=== PATIENT | male | born 1965 | race Caucasian/White ===

== ENCOUNTER 2019-03-11 06:09 | Emergency (ER) | payer BC ==
[2019-03-11] MEDS ORDERED: ONDANSETRON 4 MG/2 ML VIAL ONE (07:04)
[2019-03-11] MEDS ORDERED: MEPERIDINE HCL 50 MG/ML AMP ONE (07:04)
[2019-03-11 07:08] LABS: Absolute Lymphocytes (CBC) 0.5 K/uL (0.7-4.9); Absolute Neutrophil 13.7 K/uL (1.8-8.0); Basophils % 0.2 % (0-1.3); Eosinophils % 0.2 % (0-4.4); Hematocrit 42.1 % (39.6-49.0); Lymphocytes % 3.2 % (15.3-44.8); MPV 10.2 fL (7.6-11.3); Monocytes % 6.6 % (3.3-12.3); RBC Red Blood Cell Count 4.78 M/uL (4.33-5.43)
[2019-03-11 07:13] LABS: Potassium 4.6 mmol/L (3.5-5.1)
[2019-03-11] MEDS ORDERED: NA CHLORIDE 0.9% 2,000 ML ONE (07:42)
[2019-03-11] MEDS ORDERED: ACETAMINOPHEN 500 MG TAB ONE (07:42)
[2019-03-11] MEDS ORDERED: MEPERIDINE HCL 25 MG/0.5 ML ONE (07:54)
[2019-03-11] MEDS ORDERED: VANCOMYCIN/NS 1 gm 1 GM/250 ML BAG IV SCH (08:00)
[2019-03-11] MEDS ORDERED: HYDROMORPHONE HCL 0.5 MG/0.5 ML INJ ONE ×2 (08:09→08:50)
[2019-03-11] MEDS ORDERED: NA CHLORIDE 0.9% 1,000 ML ONE (08:22)
[2019-03-11] MEDS ORDERED: DIAZEPAM 10 MG/2 ML INJ SYRINGE ONE (09:32)
--- NOTE | 2019-03-11 09:49 | RAD REPORT ---
EXAM DESCRIPTION: CT - Spine Lumbar W/Cont - 03/11/2019 8:22 am CLINICAL HISTORY: Lumbar surgery, postsurgical bleeding, back pain COMPARISON: None. TECHNIQUE: Following nonionic IV contrast, axial 2 millimeter thick images of the lumbar spine were obtained. Sagittal and coronal reformatted images were generated and reviewed. The CT scan was performed using dose optimization techniques as appropriate to a performed exam incl uding one or more of the following: Automated exposure control, adjustment of the mA and/or kV accord ing to patient size (this includes techniques or standardized protocols for targeted exams where dose is matched to indication/reason for exam) and use of iterative reconstruction technique. FINDINGS: Lumbar body height and alignment are normal. L5-S1 disc space narrowing is present. Disc b ulge, endplate spurring and facet hypertrophy cause bilateral foraminal encroachment at L5-S1. T12-L1 disc bulge changes are present without canal stenosis or significant foraminal encroachment. Mild disc bulge changes at L3-4 without central spinal stenosis or significant foraminal encroachment . Left laminectomy changes are present at L4. Prominent facet joint degenerative changes are present at L3-4 and very pronounced at L4-5. Bilateral L5 lateral recess stenosis is present. At the L4-5 disc space there is circumferential bulging of disc material. Central canal detail is inh erently limited. Soft tissue fullness in the left-side of the central canal posterior to the L5 body is noted. Severe L5-S1 facet joint degenerative changes are present. There is a right-sided L5 pars i nterarticularis defect. No abnormal enhancement identifiable. Air in the soft tissues is seen near the left L4 laminectomy si te. No abscess in the soft tissues posterior to the spine. IMPRESSION: Postsurgical changes are present at the L4 level with left laminectomy. Increased soft tissue attenuation in the left-side of the central canal posterior to the L5 body. Epi dural blood cannot be excluded. No enhancing focus to indicate abscess. CT imaging has inherent limitation in the central canal. Advanced facet joint degenerative change at L4-5 and L5-S1. Bilateral L5 foraminal stenosis from disc bulge, endplate spurring and facet hypertrophy. Postsurgical changes are seen in the soft tissues posterior to the spine. No abscess is identifiable.
[2019-03-11] MEDS ORDERED: METHOCARBAMOL 1,000 MG in NA CHLORIDE 0.9% 100 ML IV SCH (10:00)
--- NOTE | 2019-03-11 10:00 | EDPHYS ---
Physician Documentation [facility] Name: Azael Snyder Age: 53 yrs Sex: Male : 1965 Arrival Date: 03/11/2019 Time: 06:11 Bed 20 Private MD: FRANCISCO SEGUNDO ED Physician Tonio Garcia HPI: 03/11 07:47 This 53 yrs old Male presents to ER via Wheelchair with complaints of Post jr8 Surgical Bleeding. 07:47 The patient presents with pain that is acute. The symptoms are located in the low back. jr8 The pain does not radiate. Onset: The symptoms/episode began/occurred gradually, 2 day(s) ago. Modifying factors: The patient symptoms are alleviated by nothing, the patient symptoms are aggravated by any movement. Associated signs and symptoms: The patient has no apparent associated signs or symptoms. Severity of symptoms: At their worst the symptoms were moderate. The patient has not experienced similar symptoms in the past. The patient has been recently seen by a physician:. Patient stated that he had lumbar spinal surgery approximately 2 weeks ago for discectomy and to clean out scar tissue and debris. Stated that he has had some pain from the surgery but had been doing well overall until about 2 days ago. Started to have increase in pain. This morning upon awaking had pool of blood under him. Denies any other complaints currently . Historical: - Allergies: 06:29 Latex, Natural Rubber; jd3 06:29 Coconut; jd3 - Home Meds: 06:29 Tylenol #3 Oral [Active]; lisinopril 20 mg Oral tab [Active]; metoprolol tartrate 20 mg jd3 tab oral tab [Active]; atorvastatin 40 mg oral tab [Active]; Nexium 20 mg Oral cpDR [Active]; aspirin 81 mg Oral chew [Active]; Levemir subcutaneous subcutaneous [Active]; Humalog Sub-Q [Active]; - PMHx: 06:29 High Cholesterol; Hypertension; Diabetes - IDDM; Myocardial infarction; jd3 - PSHx: 06:29 Heart stents; back; left knee; BRANDAN eyes; jd3 - Immunization history:: Adult Immunizations up to date. - Social history:: Smoking status: Patient/guardian denies using tobacco, the patient reports quitting approximately 3 years ago. - Ebola Screening: : Patient negative for fever greater than or equal to 101.5 degrees Fahrenheit, and additional compatible Ebola Virus Disease symptoms. ROS: 07:47 Eyes: Negative for injury, pain, redness, and discharge, ENT: Negative for injury, jr8 pain, and discharge, Neck: Negative for injury, pain, and swelling, Cardiovascular: Negative for chest pain, palpitations, and edema, Respiratory: Negative for shortness of breath, cough, wheezing, and pleuritic chest pain, Abdomen/GI: Negative for abdominal pain, nausea, vomiting, diarrhea, and constipation, MS/Extremity: Negative for injury and deformity, Skin: Negative for injury, rash, and discoloration, Neuro: Negative for headache, weakness, numbness, tingling, and seizure. 07:47 Back: Positive for pain at rest, pain with movement, of the lumbar area. Exam: 07:47 Eyes: Pupils equal round and reactive to light, extra-ocular motions intact. Lids and jr8 lashes normal. Conjunctiva and sclera are non-icteric and not injected. Cornea within normal limits. Periorbital areas with no swelling, redness, or edema. ENT: Nares patent. No nasal discharge, no septal abnormalities noted. Tympanic membranes are normal and external auditory canals are clear. Oropharynx with no redness, swelling, or masses, exudates, or evidence of obstruction, uvula midline. Mucous membranes moist. Neck: Trachea midline, no thyromegaly or masses palpated, and no cervical lymphadenopathy. Supple, full range of motion without nuchal rigidity, or vertebral point tenderness. No Meningismus. Cardiovascular: Regular rate and rhythm with a normal S1 and S2. No gallops, murmurs, or rubs. Normal PMI, no JVD. No pulse deficits. Respiratory: Lungs have equal breath sounds bilaterally, clear to auscultation and percussion. No rales, rhonchi or wheezes noted. No increased work of breathing, no retractions or nasal flaring. Abdomen/GI: Soft, non-tender, with normal bowel sounds. No distension or tympany. No guarding or rebound. No evidence of tenderness throughout. Skin: Warm, dry with normal turgor. Normal color with no rashes, no lesions, and no evidence of cellulitis. MS/ Extremity: Pulses equal, no cyanosis. Neurovascular intact. Full, normal range of motion. Neuro: Awake and alert, GCS 15, oriented to person, place, time, and situation. Cranial nerves II-XII grossly intact. Motor strength 5/5 in all extremities. Sensory grossly intact. Cerebellar exam normal. Normal gait. 07:47 Back: Patient has 2 ich mid line incision to lumbar region without erythema or discharge noted. Mild warmth to the area. No active bleeding currently. Steri strips in place. Tender to palpation on and around incision site . Vital Signs: 06:29 BP 119 / 90; Pulse 114; Resp 20 S; Temp 98.9(O); Pulse Ox 96% on R/A; Weight 90.72 kg jd3 (R); Height 5 ft. 11 in. (180.34 cm) (R); Pain 10/10; 07:23 BP 113 / 65; Pulse 110; Resp 16; Temp 101.5(O); Pulse Ox 98% on 2 lpm NC; em 08:01 BP 119 / 71; Pulse 105; Resp 18; Pulse Ox 97% on 2 lpm NC; Pain 10/10; em 08:42 BP 121 / 81; Pulse 98; Resp 16; Temp 98.1; Pulse Ox 98% on 2 lpm NC; Pain 10/10; em 09:40 BP 120 / 69; Pulse 99; Resp 18; Pulse Ox 97% on 2 lpm NC; Pain 8/10; em 10:35 BP 116 / 73; Pulse 93; Resp 18; Temp 97.8(O); Pulse Ox 98% on 2 lpm NC; Pain 8/10; em 06:29 Body Mass Index 27.89 (90.72 kg, 180.34 cm) jd3 MDM: 06:26 Patient medically screened. jr8 09:56 Data reviewed: vital signs, nurses notes, lab test result(s), radiologic studies, CT jr8 scan. Data interpreted: Pulse oximetry: on room air is 98 %. Interpretation: normal. Counseling: I had a detailed discussion with the patient and/or guardian regarding: the historical points, exam findings, and any diagnostic results supporting the discharge/admit diagnosis, lab results, radiology results, the need to transfer to another facility, [facility] does not immediately have the required specialist. 03/11 06:41 Order name: CBC with Diff; Complete Time: 07:20 jr8 03/11 06:41 Order name: Basic Metabolic Panel; Complete Time: 07:20 03/11 07:24 Order name: Blood Culture Adult (2) 03/11 07:24 Order name: Procalcitonin; Complete Time: 08:38 03/11 07:24 Order name: Lactate; Complete Time: 08:14 [facility] 03/11 07:28 Order name: Spine Lumbar W/Cont; Complete Time: 09:52 EDMS 03/11 06:41 Order name: IV; Complete Time: 06:48 jr8 Administered Medications: 06:54 Drug: Demerol 50 mg Route: IVP; Site: right forearm; jd3 07:37 Follow up: Response: No adverse reaction; Pain is decreased em 06:57 Drug: Zofran 4 mg Route: IVP; Site: right forearm; jd3 07:37 Follow up: Response: No adverse reaction em 07:30 Drug: Tylenol 1000 mg Route: PO; em 08:46 Follow up: Response: No adverse reaction; Temperature is decreased em 07:30 Drug: NS 0.9% (30 ml/kg) 30 ml/kg Route: IV; Rate: bolus; Site: right forearm; em 10:43 Follow up: IV Status: Completed infusion; IV Intake: 3000ml em 07:45 Drug: Demerol 25 mg Route: IVP; Site: right antecubital; iw 07:55 Follow up: Response: No adverse reaction; Pain is unchanged, physician notified em 08:00 Not Given (Other Intervention Used): Dilaudid 1 mg IVP once em 08:00 Drug: Dilaudid 0.5 mg Route: IVP; Site: right antecubital; iw 08:40 Follow up: Response: No adverse reaction; Pain is unchanged, physician notified em 08:34 Drug: vancoMYCIN 1 grams Route: IVPB; Infused Over: 2 hrs; Site: right forearm; iw 10:43 Follow up: IV Status: Completed infusion; IV Intake: 100ml em 08:43 Drug: Dilaudid 0.5 mg Route: IVP; Site: left antecubital; em 09:14 Follow up: Response: No adverse reaction; Pain is unchanged, physician notified em 09:25 Drug: Valium 5 mg Route: IVP; Site: right forearm; iw 09:54 Follow up: Response: No adverse reaction; Pain is decreased em 09:51 Drug: Robaxin 1 grams Route: IVPB; Infused Over: 1 hrs; Site: left antecubital; em 11:31 Follow up: IV Status: Completed infusion; IV Intake: 100ml em 10:20 Drug: Zosyn 3.375 grams Route: IVPB; Infused Over: 60 mins; Site: left antecubital; iw 11:31 Follow up: IV Status: Completed infusion; IV Intake: 100ml em 11:32 Drug: Dilaudid 1 mg Route: IVP; Site: right forearm; em 11:36 Follow up: Response: Medication administered at discharge. em Disposition: 03/11/19 09:59 Transfer ordered to [facility]. Diagnosis are Low back pain, Epidural hemorrhage - Lumbar region. - Reason for transfer: Higher level of care. - Accepting physician is Dr. Mazariegos . - Condition is Fair. - Problem is new. - Symptoms are unchanged. Signatures: Dispatcher [employer] EDJohn Madrigal, CONTRACTS MANAGER CONTRACTS MANAGER Milly Pineda RN RN iw Jose Pérez PA PA jr8 Miguel Noriega RN RN jd3 Corrections: (The following items were deleted from the chart) 10:11 09:59 03/11/2019 09:59 Transfer ordered to [facility]. Diagnosis is jr8 Low back pain; Epidural hemorrhage - Lumbar region. Reason for transfer: Higher level of care. Accepting physician is [facility]. Condition is Fair. Problem is new. Symptoms are unchanged. jr8 11:37 10:11 03/11/2019 09:59 Transfer ordered to [facility]. Diagnosis is em Low back pain; Epidural hemorrhage - Lumbar region. Reason for transfer: Higher level of care. Accepting physician is Dr. Mazariegos . Condition is Fair. Problem is new. Symptoms are unchanged. jr8
--- NOTE | 2019-03-11 10:00 | ER ---
Nurse's Notes [facility] Name: Azael Snyder Age: 53 yrs Sex: Male : 1965 Arrival Date: 03/11/2019 Time: 06:11 Bed 20 Private MD: FRANCISCO SEGUNDO Diagnosis: Low back pain;Epidural hemorrhage-Lumbar region Presentation: 03/11 06:21 Presenting complaint: Patient states: "2 weeks ago I had lower back surgery and really jd3 haven't had any complications since until this morning. I woke up in a pool of blood that just kept coming out of my incision on my back and I am having really bad pain.". Transition of care: patient was not received from another setting of care. Onset of symptoms was March 11, 2019. Risk Assessment: Do you want to hurt yourself or someone else? Patient reports no desire to harm self or others. Initial Sepsis Screen: Does the patient meet any 2 criteria? No. Patient's initial sepsis screen is negative. Does the patient have a suspected source of infection? No. Patient's initial sepsis screen is negative. Care prior to arrival: None. 06:21 Method Of Arrival: Wheelchair jd3 06:21 Acuity: ADDISON 3 jd3 07:29 Initial Sepsis Screen: Does the patient meet any 2 criteria? Temp <36.0*C (96.8*F)) or iw > 38.3*C (100.9*F). HR > 90 bpm. Does the patient have a suspected source of infection? Yes: Skin breakdown/wound Bone or joint infection If YES to both, name of provider notified: Jose GREER Historical: - Allergies: 06:29 Latex, Natural Rubber; jd3 06:29 Coconut; jd3 - Home Meds: 06:29 Tylenol #3 Oral [Active]; lisinopril 20 mg Oral tab [Active]; metoprolol tartrate 20 mg jd3 tab oral tab [Active]; atorvastatin 40 mg oral tab [Active]; Nexium 20 mg Oral cpDR [Active]; aspirin 81 mg Oral chew [Active]; Levemir subcutaneous subcutaneous [Active]; Humalog Sub-Q [Active]; - PMHx: 06:29 High Cholesterol; Hypertension; Diabetes - IDDM; Myocardial infarction; jd3 - PSHx: 06:29 Heart stents; back; left knee; BRANDAN eyes; jd3 - Immunization history:: Adult Immunizations up to date. - Social history:: Smoking status: Patient/guardian denies using tobacco, the patient reports quitting approximately 3 years ago. - Ebola Screening: : Patient negative for fever greater than or equal to 101.5 degrees Fahrenheit, and additional compatible Ebola Virus Disease symptoms. Screenin:31 Abuse screen: Denies threats or abuse. Nutritional screening: No deficits noted. jd3 Tuberculosis screening: No symptoms or risk factors identified. Fall Risk Ambulatory Aid- None/Bed Rest/Nurse Assist (0 pts). Gait- Normal/Bed Rest/Wheelchair (0 pts) Mental Status- Oriented to own ability (0 pts). Total Handy Fall Scale indicates No Risk (0-24 pts). Assessment: 06:30 General: Appears uncomfortable, Behavior is calm, cooperative, appropriate for age, jd3 anxious. Pain: Complains of pain in low back area Quality of pain is described as sharp, Is continuous. Neuro: Level of Consciousness is awake, alert, obeys commands, Oriented to person, place, time, situation, Appropriate for age. Cardiovascular: Denies chest pain, Capillary refill < 3 seconds Patient's skin is warm and dry. Respiratory: Airway is patent Respiratory effort is even, unlabored, Respiratory pattern is regular, symmetrical, Denies shortness of breath. GI: No signs and/or symptoms were reported involving the gastrointestinal system. : No signs and/or symptoms were reported regarding the genitourinary system. EENT: No signs and/or symptoms were reported regarding the EENT system. Derm: Skin is intact, Skin is dry, Skin is normal, Skin temperature is warm Wound noted Other: clean bandage over surgical sight located midline on the lower back. Musculoskeletal: Circulation, motion, and sensation intact. Range of motion: intact in all extremities. 07:05 Reassessment: SPO2 85% RA after pain medication, placed on NC \\T\\ 2 LPM, SPO2 95% with NC.em 07:25 Reassessment: Patient appears in no apparent distress at this time. Patient and/or em family updated on plan of care and expected duration. Pain level reassessed. Patient is alert, oriented x 3, equal unlabored respirations, skin warm/dry/pink. reports feeling hot, temp. rechecked, 101.5 oral temp, HR 110, BP 113/65, provider notified, code sepsis initiated, reports pain is "tolerable". 07:40 Reassessment: reports pain is 10/10, pt uncomfortable and restless, provider notified, em new medication orders received. 08:01 Reassessment: pt medicated for pain, 2nd blood culture sent to lab, CT notified that pt iw is ready for transport. 08:40 Reassessment: reports pain has been unchanged with medications given, provider em notified, new medication orders given. 09:40 Reassessment: Patient appears in no apparent distress at this time. resting comfortably em with eyes closed, family at bedside, pending CT results. 10:35 Reassessment: Patient appears in no apparent distress at this time. Patient and/or em family updated on plan of care and expected duration. Pain level reassessed. Patient is alert, oriented x 3, equal unlabored respirations, skin warm/dry/pink. report called to [facility], pending transportation Patient states feeling better. 11:32 Reassessment: report given to [facility]. em Vital Signs: 06:29 BP 119 / 90; Pulse 114; Resp 20 S; Temp 98.9(O); Pulse Ox 96% on R/A; Weight 90.72 kg jd3 (R); Height 5 ft. 11 in. (180.34 cm) (R); Pain 10/10; 07:23 BP 113 / 65; Pulse 110; Resp 16; Temp 101.5(O); Pulse Ox 98% on 2 lpm NC; em 08:01 BP 119 / 71; Pulse 105; Resp 18; Pulse Ox 97% on 2 lpm NC; Pain 10/10; em 08:42 BP 121 / 81; Pulse 98; Resp 16; Temp 98.1; Pulse Ox 98% on 2 lpm NC; Pain 10/10; em 09:40 BP 120 / 69; Pulse 99; Resp 18; Pulse Ox 97% on 2 lpm NC; Pain 8/10; em 10:35 BP 116 / 73; Pulse 93; Resp 18; Temp 97.8(O); Pulse Ox 98% on 2 lpm NC; Pain 8/10; em 06:29 Body Mass Index 27.89 (90.72 kg, 180.34 cm) jd3 ED Course: 06:11 Patient arrived in ED. am2 06:11 FRANICSCO SEGUNDO is Private Physician. am2 06:21 Miguel Noriega, BARBARA is Primary Nurse. jd3 06:23 Triage completed. jd3 06:26 [facility]. jr8 06:26 Tonio Garcia MD is Attending Physician. jr8 06:29 Arm band placed on. jd3 06:32 Patient has correct armband on for positive identification. Placed in gown. Bed in low jd3 position. Call light in reach. Side rails up X 1. Adult w/ patient. 06:47 Inserted saline lock: 20 gauge in right forearm, using aseptic technique. Blood jd3 collected. 07:[address] sw 07:45 Radiology exam delayed due to RN TAKING BLOOD CULTURES, PT WANTED TO WAIT ON PAIN MEDS. sw 07:59 Primary Nurse role handed off by Miguel Noriega RN em 07:59 John Saenz LVN is Primary Nurse. em 08:00 Second set of blood cultures drawn. Inserted saline lock: 20 gauge in left antecubital iw area, using aseptic technique. Blood collected. 08:23 Spine Lumbar W/Cont In Process Unspecified. EDMS 08:35 CT completed. Patient tolerated procedure well. Patient moved back from CT. az 09:56 initiated a transfer with Maria Guadalupe Ortiz RN from the [facility]. eb 10:[address] Mazariegos the neurologist computer information science professor for [facility] with Jose Greer for eb patient transfer consultation. 10:17 administrative approval given by Maria Guadalupe from the [facility]/ Dr. yasmany Mazariegos has accepted the patient to [place] [id number] bed 19/ report to be called to [phone]. 10:44 No provider procedures requiring assistance completed. Patient transferred, IV remains em in place. Administered Medications: 06:54 Drug: Demerol 50 mg Route: IVP; Site: right forearm; jd3 07:37 Follow up: Response: No adverse reaction; Pain is decreased em 06:57 Drug: Zofran 4 mg Route: IVP; Site: right forearm; jd3 07:37 Follow up: Response: No adverse reaction em 07:30 Drug: Tylenol 1000 mg Route: PO; em 08:46 Follow up: Response: No adverse reaction; Temperature is decreased em 07:30 Drug: NS 0.9% (30 ml/kg) 30 ml/kg Route: IV; Rate: bolus; Site: right forearm; em 10:43 Follow up: IV Status: Completed infusion; IV Intake: 3000ml em 07:45 Drug: Demerol 25 mg Route: IVP; Site: right antecubital; iw 07:55 Follow up: Response: No adverse reaction; Pain is unchanged, physician notified em 08:00 Not Given (Other Intervention Used): Dilaudid 1 mg IVP once em 08:00 Drug: Dilaudid 0.5 mg Route: IVP; Site: right antecubital; iw 08:40 Follow up: Response: No adverse reaction; Pain is unchanged, physician notified em 08:34 Drug: vancoMYCIN 1 grams Route: IVPB; Infused Over: 2 hrs; Site: right forearm; iw 10:43 Follow up: IV Status: Completed infusion; IV Intake: 100ml em 08:43 Drug: Dilaudid 0.5 mg Route: IVP; Site: left antecubital; em 09:14 Follow up: Response: No adverse reaction; Pain is unchanged, physician notified em 09:25 Drug: Valium 5 mg Route: IVP; Site: right forearm; iw 09:54 Follow up: Response: No adverse reaction; Pain is decreased em 09:51 Drug: Robaxin 1 grams Route: IVPB; Infused Over: 1 hrs; Site: left antecubital; em 11:31 Follow up: IV Status: Completed infusion; IV Intake: 100ml em 10:20 Drug: Zosyn 3.375 grams Route: IVPB; Infused Over: 60 mins; Site: left antecubital; iw 11:31 Follow up: IV Status: Completed infusion; IV Intake: 100ml em 11:32 Drug: Dilaudid 1 mg Route: IVP; Site: right forearm; em 11:36 Follow up: Response: Medication administered at discharge. em Intake: 10:43 IV: 3000ml; Total: 3000ml. em 10:43 IV: 100ml; Total: 3100ml. em 11:31 IV: 100ml; Total: 3200ml. em 11:31 IV: 100ml; Total: 3300ml. em Outcome: 09:59 ER care complete, transfer ordered by MD. hector 11:36 Transferred by ground EMS to [facility], Transfer form completed. em X-rays sent w/ patient. 11:36 Condition: stable 11:36 Instructed on the need for admit, Demonstrated understanding of instructions. 11:37 Patient left the ED. em Addendum: 03/14/2019 08:40 Addendum: Culture Results: Positive blood culture. Phone call Attempt #1 faxed blood i w culture report to [facility]. Signatures: Dispatcher [employer] EDMS John Saenz, WELFARE CENTRE MANAGER WELFARE CENTRE MANAGER em Milly Pineda RN RN iw Jose Pérez PA PA jr8 Zaina Rogers Amanda am2 Davies, Jonathon, RN RN Bianca Kinsey Araceli az Corrections: (The following items were deleted from the chart) 03/11 07:37 07:10 Response: No adverse reaction em em 08:15 08:00 Inserted saline lock: 20 gauge in left antecubital area, using aseptic technique. iw Blood collected. em 08:15 08:00 Second set of blood cultures drawn em iw 08:15 08:00 Inserted saline lock: 20 gauge in left antecubital area, using aseptic technique. iw Blood collected. iw 08:51 08:01 BP 119 / 71; Pulse 105bpm; Resp 18bpm; Pulse Ox 97% RA; Pain 10/10; em em
[2019-03-11] MEDS ORDERED: PIPER/TAZO/NS 3.375gm 3.375 GM/100 ML BAG ONE (10:22)
[2019-03-11] MEDS ORDERED: HYDROMORPHONE HCL 1 MG/ML INJ ONE (11:41)
== END 2019-03-11 11:37 | disposition short-term general hospital (02) ==
LOC: ER 06:09
DX: S06.4X0A Epidural hemorrhage without loss of consciousness, initial encounter (principal); M54.5 Low back pain; E78.00 Pure hypercholesterolemia, unspecified; I10 Essential (primary) hypertension; E11.9 Type 2 diabetes mellitus without complications; I25.2 Old myocardial infarction; Z91.040 Latex allergy status; Z79.82 Long term (current) use of aspirin; Z79.4 Long term (current) use of insulin
CPT/HCPCS: 36415; 72132; 80048; 83605; 84145; 85025; 87040; 87077; 87186; 87205; 99285; J1170; J2175; J2405; J2543; J2800; J3360; J3370; J7030; Q9967